=== PATIENT | female | born 1970 | race Caucasian/White ===

== ENCOUNTER 2016-12-31 07:35 | Emergency (ER) | payer OTHER ==
[~2016-12-31] VITALS: Ht 160 cm; Wt 67.0 kg
[2016-12-31 07:36] VITALS: BP 109/69; PULSE 76; RESP 15; TEMP 97.9; O2SAT 98
[2016-12-31] MEDS ORDERED: ZANT150T2 PO (07:48)
[2016-12-31] MEDS ORDERED: MONT10TA2 PO (07:48)
--- NOTE | 2016-12-31 08:10 | PD ---
HPI Chief Complaint: Musculoskeletal Complaint Time Seen by Provider: 07:52 Travel History International Travel<30 days: No Contact w/Intl Traveler<30days: No Traveled to known affect area: No History of Present Illness HPI 46yo F with PMH of chronic back pain who follows with pain management and physical therapy presents to the ED with c/o right anterior thigh pain for 3 days. States pain starts around where her muscle insertion is and worst with movement and radiates down medial thigh with movement. Denies any fever, chest pain, sob, n/v, abdominal pain, urinary complaints, trauma, fall, weakness or numbness. States she had tingling in her bilateral fingers and toes this morning that resolved on its own. Pt states she is from [place] and had been getting injections for her coccyx pain and her physical therapist thinks she has an anteriorly tilted pelvis and has been doing adjustments. Pt states she does not get any pain medication from her pain management. Took advil this morning with no relieve. PFSH Past Medical History Diminished Hearing: No GERD: Yes Tetanus Vaccination: > 5 Years Influenza Vaccination: No ?: Not LMP: 12/23/16 : 2 Para: 2 Social History Alcohol Use: No Tobacco Use: No Substance Use: No Allergies-Medications (Allergen,Severity, Reaction): Coded Allergies: Penicillin (Verified Allergy, Unknown, since a child, 12/31/16) Reported Meds & Prescriptions Reported Meds & Active Scripts Active Reported Singulair (Montelukast Sodium) 10 Mg Tab 10 Mg PO HS Zantac (Ranitidine HCl) 150 Mg Tab 150 Mg PO BID Review of Systems Except as stated in HPI: all other systems reviewed are Neg Physical Exam Narrative GENERAL: 46yo F not in distress. SKIN: Focused skin assessment warm/dry. HEAD: Atraumatic. Normocephalic. CARDIOVASCULAR: Regular rate and rhythm. No murmur appreciated. RESPIRATORY: No accessory muscle use. Clear to auscultation. Breath sounds equal bilaterally. GASTROINTESTINAL: Abdomen soft, non-tender, nondistended. No rebound tenderness or guarding. BACK: No midline thoracic or lumbar ttp. MUSCULOSKELETAL: RLE: No erythema or edema in right hip joint. +TTP mid anterior iliac, worst with movement. FROM right knee and ankle. Sensation equal bilaterally. DP 2+. No obvious deformities. No clubbing. No cyanosis. No edema. NEUROLOGICAL: Awake and alert. No obvious cranial nerve deficits. Motor grossly within normal limits. Normal speech. PSYCHIATRIC: Appropriate mood and affect; insight and judgment normal. Data Data Last Documented VS Vital Signs Date Time Temp Pulse Resp B/P Pulse Ox O2 Delivery O2 Flow Rate FiO2 12/31/16 07:36 97.9 76 15 109/69 98 Orders Hip, Uni(Ap&Lat) W Ap Pelvis (12/31/16 ) Diazepam (Valium) (12/31/16 08:15) Acetaminophen (Tylenol) (12/31/16 08:15) MDM Medical Decision Making Medical Screen Exam Complete: Yes Emergency Medical Condition: Yes Interpretation(s) Last Impressions Hip and Pelvis X-Ray 12/31/16 0000 Signed Impressions: Service Date/Time: Saturday, December 31, 2016 08:32 - CONCLUSION: No acute fracture. Silviano Townsend MD Differential Diagnosis Musculoskeletal pain vs. tendonitis vs. fracture Narrative Course 46yo F well appearing female with musculoskeletal pain. Xray of pelvis and right hip showed no acute fracture. Pt given valium 2mg and acetaminophen 650mg PO with improvement of pain. Normal VS. Pt states she has ibuprofen at home and does not need a prescription. Return precautions given. Diagnosis Primary Impression: Right leg pain Patient Instructions: General Instructions Departure Forms: Tests/Procedures Additional Instructions: Please follow up with your PMD in 3-7 days. Return to the ED if symptoms worsen. Med/Other Pt SpecificInfo: No Change to Meds Disposition: 01 DISCHARGE HOME Condition: Stable MaricarmenDorothyAlivia DO December 31, 2016 08:10
[2016-12-31] MEDS ORDERED: DIAZEPAM 2 MG TAB PO ONE (08:15)
[2016-12-31] MEDS ORDERED: ACETAMINOPHEN 325 MG TAB PO ONE (08:15)
--- NOTE | 2016-12-31 08:47 | RADRPT ---
EXAM DATE/TIME: 12/31/2016 08:32 [facility] COMPARISON: No previous studies available for comparison. INDICATIONS : No known injury, pain with any motion or weight bearing. MEDICAL HISTORY : None. SURGICAL HISTORY : None. ENCOUNTER: Initial ACUITY: 1 day PAIN SCORE: 10/10 LOCATION: Right hip. FINDINGS: Examination of the right hip was performed with AP Pelvis. The primary and secondary trabecular tomy kristie of the femoral neck is intact. The hip joint is of normal width without significant sclerosis or bony hypertrophy. The acetabulum is grossly intact. CONCLUSION: No acute fracture. Silviano Townsend MD on December 31, 2016 at 8:44 Board Certified Radiologist. This report was verified electronically.
[2016-12-31 09:43] VITALS: BP 113/69
== END 2016-12-31 09:44 | disposition home or self-care (01) ==
LOC: NEPE 07:35
DX: M79.651 Pain in right thigh (principal); G89.29 Other chronic pain; M54.9 Dorsalgia, unspecified; K21.9 Gastro-esophageal reflux disease without esophagitis
CPT/HCPCS: 73502; 99283